=== PATIENT | female | born 2000 | race Caucasian/White ===

== ENCOUNTER 2018-10-19 11:26 | Emergency (ER) | payer OTHER, SELFPAY ==
[2018-10-19 11:29] VITALS: BP 106/61; PULSE 88; RESP 16; TEMP 36.9; O2SAT 95
--- NOTE | 2018-10-19 11:32 | W.ED.GENAD ---
Discharge Plan Disposition Patient Disposition: HOME Condition: Stable Discharge Details Chief Complaint: Abd Prob Clinical Impression: Complex cyst of right ovary, Abdominal pain Primary Care Provider: Wanda,Local ED Provider: Ronald Calderon Home Meds and New Rx's Prescriptions: New ondansetron 4 mg tablet,disintegrating 4 mg PO QID PRN (Reason: nausea and vomiting) Qty: 30 RF: 0 No Action albuterol sulfate [ProAir HFA] 90 mcg/actuation Hfa Aerosol Inhaler 2 puff Inhalation BID RF: 0 Discharge Instructions Instructions: Ovarian Cyst (ED) Additional Instructions: you should be contacted with an appointment for women's wellness you can take 1000mg tylenol and 600mg ibuprofen as needed for pain if you have severe worsening of pain or persistent vomit return to the emergency department Medical Decision Making 17 yo female who denies chronic medical problems, smoking, alcohol or drug use or surgical hx, comes in with cc of over a week of worsening abdominal pain, intermittent n/v and diarrhea for 2 days. She denies recent travel or foods. Localizes the pain to the lower abdomen and has pain in the llq and is not guarding or having rebound on exam. She is tender with deep palpation in the llq. NO vaginal d/c or bleeding. Will obtain labs and imaging to eval for diverticulitis, pancreatitis. No pelvic pain so doubt ovarian torsion labs are unremarkable, her pain has improved but still present. Per Dr. Cueva CT shows right ovarian cyst, no other acute findings. Will obtain u/s to eval for torsion u/s shows good flow to both cysts, has complex right cyst, will have her f/u with [facility] [place] for this. Return precautions given Differential Diagnosis gastroenteritis, diverticulitis, ovarian cyst Imaging Data Radiologic Study: Attestation: I personally reviewed and interpreted this imaging study as follows: Imaging: CT Scan Radiologist's impression: right ovarian cyst Radiologic Study #2: Attestation: I personally reviewed and interpreted this imaging study as follows: Imaging: Ultrasound Radiologist's impression: intact venous and arterial flow, right ovarian complex cyst Lab Data Lab results reviewed: Yes I reviewed the patient's lab results. HPI General Mode of arrival: ambulatory. Date/Time Provider Initiated Documentation: 10/19/18 11:32. Limitations to Documentation: no limitations. Information obtained by: patient. History of Present Illness 17 year old F presents to the emergency department with the chief complaint of abdominal pain, described as moderate, Quality is described as stabbing and aching, and is localized to the abdomen. Patient reports no radiation. Patient started experiencing this week(s) (1) and it has been constant. No relieving factors improve symptom(s), No exacerbating factors reported . Patient notes nausea/vomiting. Related Data Home Medications Medication Instructions Recorded Confirmed albuterol sulfate [ProAir HFA] 2 puff INHALATION BID 10/19/18 10/19/18 ondansetron 4 mg PO QID PRN #30 tab 10/19/18 Previous Rx's Medication Instructions Recorded ondansetron 4 mg PO QID PRN #30 tab 10/19/18 Allergies Allergy/AdvReac Type Severity Reaction Status Date / Time No Known Allergies Allergy Unverified 10/19/18 11:34 Review of Systems Review of Systems All systems reviewed & are unremarkable except as noted in HPI and below Constitutional Denies weakness ENT Denies change in voice Cardiovascular Denies chest pain and Denies dyspnea Respiratory Denies cough and Denies dyspnea Musculoskeletal Denies joint swelling Neurologic Denies weakness ON LICENSE OF [facility] Social History Smoking/Tobacco Use Status: Never Alcohol Intake: never Substance use type: does not use Do you feel safe at home: Yes Do you feel safe in your relationship?: Yes Exam Const General: no acute distress Orientation: alert HENMT Head: normal to inspection Ears: external ears normal General nose exam: external nose normal Mouth: moist mucous membranes Eyes General: appearance normal, both eyes and all related structures Neck Neck: normal visual inspection Resp Effort & Inspection: normal respiratory effort and able to speak in complete sentences Cardio Rate: regular rate GI Inspection: normal to inspection Palpation: soft Skin General skin exam: no rashes or lesions noted Neuro General: alert and oriented x3 Extrem General: normal to inspection Psych Mental Status: mental status grossly normal
--- NOTE | 2018-10-19 11:40 | DI.CT_ITS ---
SYMPTOMS/DIAGNOSIS: LOWER ABDOMINAL PAIN CT SCAN OF THE ABDOMEN AND PELVIS: CT scan of the abdomen and pelvis was performed following the uneventful administration of intravenous contrast material. There are no priors for comparison. The visualized lung bases are clear. The liver, spleen, pancreas, gallbladder, bile ducts and adrenal glands are unremarkable. The kidneys show normal and symmetric enhancement. No solid renal mass or obstruction is seen. The urinary bladder is intact. There is a 4 cm cyst in the right adnexa, likely ovarian. The reproductive organs are otherwise unremarkable. The bowel shows no evidence of obstruction or inflammation. There is a normal appendix present. There is a trace amount of free fluid in the pelvis, which is likely physiologic. No pneumoperitoneum or adenopathy is seen. The abdominal aorta is of normal caliber. No acute osseous abnormalities identified. IMPRESSION: 1. A 4 cm right adnexal cystic lesion, likely ovarian. Pelvic ultrasound may be considered for further evaluation. 2. Normal appendix. The findings were discussed with Dr. Parul Dumont of the Emergency Department on the date of the examination.
--- NOTE | 2018-10-19 11:49 | ED.GENADUL_ITS ---
Discharge Plan Disposition Patient Disposition: HOME Condition: Stable Discharge Details Chief Complaint: Abd Prob Clinical Impression: Complex cyst of right ovary, Abdominal pain Primary Care Provider: Wanda,Local ED Provider: Ronald Calderon Home Meds and New Rx's Prescriptions: New ondansetron 4 mg tablet,disintegrating 4 mg PO QID PRN (Reason: nausea and vomiting) Qty: 30 RF: 0 No Action albuterol sulfate [ProAir HFA] 90 mcg/actuation Hfa Aerosol Inhaler 2 puff Inhalation BID RF: 0 Discharge Instructions Instructions: Ovarian Cyst (ED) Additional Instructions: you should be contacted with an appointment for women's wellness you can take 1000mg tylenol and 600mg ibuprofen as needed for pain if you have severe worsening of pain or persistent vomit return to the emergency department Medical Decision Making 17 yo female who denies chronic medical problems, smoking, alcohol or drug use or surgical hx, comes in with cc of over a week of worsening abdominal pain, intermittent n/v and diarrhea for 2 days. She denies recent travel or foods. Localizes the pain to the lower abdomen and has pain in the llq and is not guarding or having rebound on exam. She is tender with deep palpation in the llq. NO vaginal d/c or bleeding. Will obtain labs and imaging to eval for div erticulitis, pancreatitis. No pelvic pain so doubt ovarian torsion labs are unremarkable, her pain has improved but still present. Per Dr. Cueva CT shows right ovarian cyst, no other acute findings. Will obtain u/s to eval for torsion u/s shows good flow to both cysts, has complex right cyst, will have her f/u with [facility] for [facility]. Return precautions given Differential Diagnosis gastroenteritis, diverticulitis, ovarian cyst Imaging Data Radiologic Study: Attestation: I personally reviewed and interpreted this imaging study as follows: Imaging: CT Scan Radiologist's impression: right ovarian cyst Radiologic Study #2: Attestation: I personally reviewed and interpreted this imaging study as follows: Imaging: Ultrasound Radiologist's impression: intact venous and arterial flow, right ovarian complex cyst Lab Data Lab results reviewed: Yes I reviewed the patient's lab results. HPI General Mode of arrival: ambulatory . Date/Time Provider Initiated Documentation: 10/19/18 11:32 . Limitations to Documentation: no limitations . Information obtained by: patient . History of Present Illness 17 year old F presents to the emergency department with the chief complaint of abdominal pain, described as moderate, Quality is described as stabbing and aching, and is localized to the abdomen. Patient reports no radiation. Patient started experiencing this week(s) (1) and it has been constant. No relieving factors improve symptom(s), No exacerbating factors reported . Patient notes nausea/vomiting. Related Data Home Medications Medication Instructions Recorded Confirmed albuterol sulfate [ProAir HFA] 2 puff INHALATION BID 10/19/18 10/19/18 ondansetron 4 mg PO QID PRN #30 tab 10/19/18 Previous Rx's Medication Instructions Recorded ondansetron 4 mg PO QID PRN #30 tab 10/19/18 Allergies Allergy/AdvReac Type Severity Reaction Status Date / Time No Known Allergies Allergy Unverified 10/19/18 11:34 Review of Systems Review of Systems All systems reviewed & are unremarkable except as noted in HPI and below Constitutional Denies weakness ENT Denies change in voice Cardiovascular Denies chest pain and Denies dyspnea Respiratory Denies cough and Denies dyspnea Musculoskeletal Denies joint swelling Neurologic Denies weakness [facility] Social History Smoking/Tobacco Use Status: Never Alcohol Intake: never Substance use type: does not use Do you feel safe at home: Yes Do you feel safe in your relationship?: Yes Exam Const General: no acute distress Orientation: alert HENMT Head: normal to inspection Ears: external ears normal General nose exam: external nose normal Mouth: moist mucous membranes Eyes General: appearance normal, both eyes and all related structures Neck Neck: normal visual inspection Resp Effort & Inspection: normal respiratory effort and able to speak in complete sentences Cardio Rate: regular rate GI Inspection: normal to inspection Palpation: soft Skin General skin exam: no rashes or lesions noted Neuro General: alert and oriented x3 Extrem General: normal to inspection Psych Mental Status: mental status grossly normal
[2018-10-19 11:55] LABS: Abs Immature Grans 0.01 k/cumm (0.0-0.09); Absolute Basophil Count 0.03 k/cumm (0.0-0.2); Absolute Eosinophil Count 0.46 k/cumm (0.0-0.7); Absolute Lymphocyte Count 1.66 k/cumm (1.2-3.4); Absolute Monocyte Count 0.62 k/cumm (0.11-0.7); Absolute Neutrophil Count 2.43 k/cumm (1.2-6.7); Basophils % 0.6; Eosinophils % 8.8; HCT 43.3 % (36.0-46.0); HGB 14.4 g/dL (12.0-15.5); Immature Grans % 0.2; Lymphocytes % 31.9; Mean Corp. HGB Concentration 33.3 g/dL (32.0-36.0); Mean Corpuscular Hemoglobin 28.6 pg (27.0-33.0); Mean Corpuscular Volume 85.9 fL (80-95); Mean Platelet Volume 10.1 fL (8.0-11.0); Monocytes % 11.9; Neutrophils % 46.6; Platelet Count 359 x1000/uL (130-400); RBC 5.04 m/cumm (4.00-5.20); RBC Distribution Width 13.9 % (11.7-14.6); White Blood Cell Count 5.21 k/cumm (4.4-10.8)
[2018-10-19] MEDS: Ketorolac 15 MG/ML VIAL IVP (12:07)
[2018-10-19] MEDS: Ondansetron 4 MG/2 ML VIAL IVP (12:08)
[2018-10-19] MEDS: Normal Saline 1,000 ML 1000 ML IV (12:08)
[2018-10-19 12:11] LABS: ALT 34 U/L (12-78); AST 26 U/L (15-37); Alkaline Phosphatase 97 U/L (46-116); Anion Gap 12.5 mmol/L (3-11); BUN 14 mg/dL (7-18); Bilirubin, Total 0.3 mg/dL (0.2-1.0); CO2 26.5 mmol/L (21.0-32.0); CREATININE 0.67 mg/dL (0.55-1.02); Calcium 9.1 mg/dL (8.5-10.1); Chloride 100 mmol/L (98-107); Glucose 75 mg/dL (70-100); Lipase 137 U/L (73-393); Potassium 3.7 mmol/L (3.5-5.1); Sodium 139 mmol/L (136-145); Total Protein 8.1 g/dL (6.4-8.2)
[2018-10-19] MEDS: Omnipaque 350 MG/ML 100 ML BTL IJ (12:31)
--- NOTE | 2018-10-19 12:45 | DI.US_ITS ---
SYMPTOMS/DIAGNOSIS: PELVIC PAIN, NAUSEA/VOMITING/DIARRHEA, OVARIAN CYST, ? TORSION PELVIC ULTRASOUND: Transabdominal and transvaginal examination was performed. The uterus measures 6.2 cm long x 2.4 cm AP x 4.2 cm transverse. The endometrial stripe is within normal limits at 0.4 cm. No myometrial mass is present. The left ovary measures 3.5 x 1.7 x 2.4 cm. There are small follicular cysts present. There is normal blood flow to the left ovary. No evidence of torsion is present. The right ovary measures 4.9 x 3.2 x 4.8 cm. There is normal blood flow. No evidence of torsion. There is a 4.2 x 2.7 x 4.2 cm complex right ovarian cyst. Internal septations are seen. No blood flow is identified internally. There is a small amount of free fluid in the cul-de-sac. This is likely physiologic. No hydronephrosis is identified. IMPRESSION: A 4.2 cm complex right ovarian cyst. This corresponds to the CT abnormality. This may represent a hemorrhagic cyst. A follow-up pelvic ultrasound in 6-8 weeks is recommended to document resolution of the cyst and to exclude other etiologies. The findings were discussed with Dr. Calderon of the Emergency Department on the date of the examination.
[2018-10-19 14:20] VITALS: BP 114/72; PULSE 81; RESP 14; TEMP 37.1; O2SAT 99
--- NOTE | 2018-10-20 08:33 | PDOC.ERCMPRO ---
Care Management Progress Note 10/20-Dr. Calderon requested assistance with a [facility] f/u as soon as possible for complex ovarian cyst. Referral faxed to [facility] this am.
== END 2018-10-19 14:29 | disposition home or self-care (01) ==
PROVIDERS: Emergency Provider Emergency Medicine
DX: N83.291 Other ovarian cyst, right side (principal); R10.9 Unspecified abdominal pain
CPT/HCPCS: 36415; 80053; 83690; 87040; 96361; 96374; 99285; 74177; 76830; 76856; 85025; 99284; J1885; J2405; J3490

== ENCOUNTER 2019-01-10 11:28 | Emergency (ER) | payer MEDICAID, SELFPAY ==
[2019-01-10 11:32] VITALS: BP 115/58; PULSE 89; RESP 18; TEMP 36.8; O2SAT 100
--- NOTE | 2019-01-10 11:43 | DI.CT_ITS ---
SYMPTOMS/DIAGNOSIS: LLQ PAIN CT OF THE ABDOMEN AND PELVIS: Comparison is made with [id number]. Images were performed from the lung bases through the ischial tuberosities after IV and without oral contrast. The heart size is normal. The lung bases are clear. The liver, gallbladder, spleen, pancreas, kidneys and adrenals appear normal. There is a moderate quantity of stool. There is no bowel dilatation or inflammatory change. The appendix appears normal. The uterus and ovaries appear normal. The bladder is unremarkable. IMPRESSION: Negative CT of the abdomen and pelvis:
--- NOTE | 2019-01-10 11:46 | ED.GENADUL_ITS ---
Discharge Plan Disposition Patient Disposition: HOME Condition: Improving Discharge Details Chief Complaint: Abd Prob Clinical Impression: Bacterial vaginosis Primary Care Provider: Kenny Evans ED Provider: Kartik Blackburn Home Meds and New Rx's Prescriptions: New metronidazole [Metrogel] 1 % gel with pump 1 applic TP DAILY 5 Days Qty: 55 RF: 0 Continued loratadine [Claritin] 10 mg tablet 10 mg PO DAILY RF: 0 Cryselle (28) 0.3-30 mg-mcg tablet 1 tab PO DAILY Qty: 84 RF: 3 albuterol sulfate [ProAir HFA] 90 mcg/actuation Hfa Aerosol Inhaler 2 puff Inhalation BID RF: 0 ondansetron 4 mg tablet,disintegrating 4 mg PO QID PRN (Reason: nausea and vomiting) Qty: 30 RF: 0 Symbicort 160-4.5 mcg/actuation Hfa Aerosol Inhaler 2 puff INHALATION BID RF: 0 Discharge Instructions Instructions: Bacterial Vaginosis (ED) Additional Instructions: Home to rest today. Please begin the metronidazole prescription for its entire 5-day course. Follow-up with Dr. Gill if not improving in 3 to 5 days time. Return to the ER if you develop a fever, worsening pain, or any other acute concerns May use Tylenol and/or ibuprofen as needed for pain Medical Decision Making 18-year-old female presents from home with 3 days of intermittent left-sided lower abdominal pain that somewhat colicky in nature. Associated with what she says is a green vaginal discharge. Vital signs are normal. She does have some left lower quadrant left adnexal pain on exam. Pharyngitis includes bacterial vaginosis, ovarian cyst, less likely bowel pathology. IV placed, labs, urinalysis, vaginal pathology swabs obtained. Patient referred for CT images. She is given ketorolac for discomfort. Labs notable for positive Gardnerella. CBC stable with a white count of 6, chemistries reassuring but with slight anion gap of 13. HPI General Mode of arrival: ambulatory . Date/Time Provider Initiated Documentation: 01/10/19 11:31 . Limitations to Documentation: no limitations . Information obtained by: patient . History of Present Illness 18 year old F presents to the emergency department with the chief complaint of Left lower quadrant abdominal pain, vaginal discharge, described as moderate, Quality is described as dull, and is localized to the abdomen and pelvis. Patient abdomen. Patient started experiencing this day(s) and it has been intermittent. No relieving factors improve symptom(s), No exacerbating factors reported . Patient notes denies fever/chills. Patient did receive the following treatments prior to arrival, none Related Data Home Medications Medication Instructions Recorded Confirmed albuterol sulfate [ProAir HFA] 2 puff INHALATION BID 10/19/18 01/10/19 ondansetron 4 mg PO QID PRN #30 tab 10/19/18 01/10/19 loratadine 10 mg tablet 10 mg PO DAILY 10/20/18 01/10/19 norgestrel-ethinyl estradiol 0.3 1 tab PO DAILY #84 tab 10/20/18 01/10/19 mg-30 mcg tablet Symbicort 2 puff INHALATION BID 01/10/19 01/10/19 metronidazole [Metrogel] 1 applic TP DAILY 5 Days #55 gm 01/10/19 Previous Rx's Medication Instructions Recorded ondansetron 4 mg PO QID PRN #30 tab 10/19/18 norgestrel-ethinyl estradiol 0.3 1 tab PO DAILY #84 tab 10/20/18 mg-30 mcg tablet metronidazole [Metrogel] 1 applic TP DAILY 5 Days #55 gm 01/10/19 Allergies Allergy/AdvReac Type Severity Reaction Status Date / Time No Known Allergies Allergy Unverified 01/10/19 11:38 General Stated Complaint: Abd Prob DALY: 3 Review of Systems Review of Systems 6 systems reviewed and otherwise negative [facility] Social History Smoking/Tobacco Use Status: Never Alcohol Intake: never Substance use type: does not use Do you feel safe at home: Yes Do you feel safe in your relationship?: Yes Female Reproductive History Menstrual Age of Menarche: 12 Duration of menses: 6-7 days (period lasting 4 to 7 days) control method: none Exam Narrative Exam Narrative: GEN: awake, alert, oriented 3. Pleasant, well groomed, interactive. HEAD: Normocephalic, atraumatic ENT: Mucous membranes moist, oropharynx unremarkable, External ear exam unremarkable EYES: PERRL, EOMI NECK: Full ROM, no CAROLYNN, no menigismus CHEST/RESP: Nontender, clear to auscultation bilateral, no wheeze/rhonchi/rales CARDIOVASCULAR: RRR, no murmur, rub capri. 2+ Rad pulse bilateral ABDOMEN: Soft, tender in the left lower quadrant to palpation, no mass. +Bowel sounds. Vaginal exam reveals blood and mucus in the vaginal vault, tenderness with bimanual exam of the left adnexa EXT: Full ROM, no edema, no rash Neuro: Grossly normal neurologic exam, conversant, interactive. Psych: Speech fluent, thoughts congruent, affect normal Course Vital Signs Temperature 36.8 C 01/10/19 11:32 Pulse 89 01/10/19 11:32 Respiratory Rate 18 01/10/19 11:32 Blood Pressure 115/58 L 01/10/19 11:32 Pulse Oximetry 100 01/10/19 11:32 Temperature 36.8 C 01/10/19 11:32 Temperature Source Temporal Artery Scan 01/10/19 11:32 Pulse 89 01/10/19 11:32 Respiratory Rate 18 01/10/19 11:32 Respiratory Effort Non-Labored 01/10/19 11:37 Blood Pressure 115/58 L 01/10/19 11:32 Pulse Oximetry 100 01/10/19 11:32 Oxygen Delivery Method Room Air 01/10/19 11:32 Oxygen Flow Rate 0 01/10/19 11:32 Pain Level 5 01/10/19 11:32
[2019-01-10 12:19] LABS: Bilirubin Negative (Negative); Blood Negative (Negative); Clarity Clear (Clear); Glucose Negative (Negative); Ketones Negative (Negative); Leukocyte Esterase Negative (Negative); Nitrite Negative (Negative); Specific Gravity 1.015 (1.005-1.025); Urobilinogen 0.2 EU/dL (Up TO 0.2)
[2019-01-10] MEDS: Normal Saline Flush 10 ML SYR IVP ×2 (12:20→12:52)
[2019-01-10] MEDS: Normal Saline 1,000 ML 125 ML IV (12:25)
[2019-01-10] MEDS: Ketorolac 30 MG/ML VIAL IVP (12:25)
[2019-01-10 12:34] LABS: Abs Immature Grans 0.01 k/cumm (0.0-0.09); Absolute Basophil Count 0.02 k/cumm (0.0-0.2); Absolute Eosinophil Count 0.37 k/cumm (0.0-0.7); Absolute Lymphocyte Count 2.13 k/cumm (1.2-3.4); Basophils % 0.3; Eosinophils % 5.7; HCT 41.2 % (36.0-46.0); HGB 13.9 g/dL (12.0-15.5); Immature Grans % 0.2; Lymphocytes % 32.6; Mean Corp. HGB Concentration 33.7 g/dL (32.0-36.0); Mean Corpuscular Hemoglobin 29.1 pg (27.0-33.0); Mean Corpuscular Volume 86.2 fL (80-95); Mean Platelet Volume 10.1 fL (8.0-11.0); Monocytes % 7.7; Neutrophils % 53.5; Platelet Count 437 x1000/uL (130-400); RBC 4.78 m/cumm (4.00-5.20); RBC Distribution Width 13.2 % (11.7-14.6); White Blood Cell Count 6.53 k/cumm (4.4-10.8)
[2019-01-10 12:48] LABS: ALT 29 U/L (12-78); AST 19 U/L (15-37); Albumin 3.7 g/dL (3.4-5.0); Alkaline Phosphatase 117 U/L (46-116); Anion Gap 13.7 mmol/L (3-11); BUN 10 mg/dL (7-18); Bilirubin, Total 0.2 mg/dL (0.2-1.0); CO2 23.3 mmol/L (21.0-32.0); CREATININE 0.68 mg/dL (0.55-1.02); Calcium 8.6 mg/dL (8.5-10.1); Chloride 106 mmol/L (98-107); Glucose 87 mg/dL (70-100); Potassium 3.8 mmol/L (3.5-5.1); Sodium 143 mmol/L (136-145); Total Protein 7.6 g/dL (6.4-8.2)
[2019-01-10] MEDS: Omnipaque 350 MG/ML 100 ML BTL IJ (12:52)
[2019-01-10 13:00] VITALS: BP 112/73; PULSE 83; RESP 18; TEMP 36.8; O2SAT 99
--- NOTE | 2019-01-10 13:58 | DI.VRAD_ITS ---
EXAM: CT Abdomen and Pelvis With Contrast EXAM DATE/TIME: 01/10/2019 11:44 AM CLINICAL HISTORY: 18 years old, female; Other: Llq pain TECHNIQUE: Imaging protocol: Axial computed tomography images of the abdomen and pelvis with intravenous contrast. Coronal and sagittal reformatted images were created and reviewed. Radiation optimization: All CT scans at this facility use at least one of these dose optimization techniques: automated exposure control; mA and/or kV adjustment per patient size (includes targeted exams where dose is matched to clinical indication); or iterative reconstruction. Contrast material: OMNIPAQUE 350; Contrast volume: 91 ml; Contrast route: IV; COMPARISON: CT ABDOMEN PELVIS W 10/19/2018 12:08 PM FINDINGS: Liver: Unremarkable. No mass. Gallbladder and bile ducts: Unremarkable. No calcified stones. No ductal dilation. Pancreas: Unremarkable. No ductal dilation. Spleen: Unremarkable. No splenomegaly. Adrenals: Normal. No mass. Kidneys and ureters: Unremarkable. No stones. No hydronephrosis. Stomach and bowel: Unremarkable. No obstruction. No mucosal thickening. Appendix: No evidence of appendicitis. Intraperitoneal space: Unremarkable. No free air. No significant fluid collection. Vasculature: Unremarkable. No abdominal aortic aneurysm. Lymph nodes: Unremarkable. No enlarged lymph nodes. Bladder: Unremarkable as visualized. Reproductive: Unremarkable as visualized. Bones/joints: No acute fracture. Soft tissues: Unremarkable. IMPRESSION: No acute findings. Dictated and Authenticated by: Rolando Valente MD. Ordering:ARTIS Verdugo MD
[2019-01-10 14:33] VITALS: BP 112/76; PULSE 93; RESP 16; TEMP 37.1; O2SAT 98
== END 2019-01-10 14:29 | disposition home or self-care (01) ==
PROVIDERS: Emergency Provider Emergency Medicine; PCP Specialist/Technologist Athletic Trainer
DX: N76.0 Acute vaginitis (principal); B96.89 Other specified bacterial agents as the cause of diseases classified elsewhere
CPT/HCPCS: 36415; 80053; 81025; 96361; 96374; 99285; 74177; 81003; 85025; 87480; 87510; 87660; 99284; J1885; J3490

== ENCOUNTER 2019-02-15 09:00 | Outpatient (CLI) | payer MEDICAID, SELFPAY ==
[2019-02-16 16:42] LABS: Alternaria Tenuis IgE <0.35 kU/L; Aspergillus Fumigatus IgE <0.35 kU/L; Bermuda Grass IgE 2.84 kU/L; Cockroach IgE <0.35 kU/L; Cottonwood IgE <0.35 kU/L; D Farinae IgE 6.03 kU/L; Eastern Sycamore IgE <0.35 kU/L; Elm IgE <0.35 kU/L; Epicoccum purpurascens IgE <0.35 kU/L; Giant Ragweed IgE <0.35 kU/L; Oak IgE <0.35 kU/L; Penicillium chrysogenum IgE <0.35 kU/L; Red Sorrel IgE <0.35 kU/L; Rough Pigweed IgE <0.35 kU/L; Silver Birch IgE <0.35 kU/L; Walnut Tree IgE <0.35 kU/L
[2019-02-16 16:59] LABS: Cat Epithelium IgE 13.8 kU/L; Cladosporium IgE <0.35 kU/L; Cocklebur IgE <0.35 kU/L; Lamb's Quarter IgE <0.35 kU/L; Short Ragweed IgE <0.35 kU/L; Stemphyllium IgE <0.35 kU/L; Timothy Grass IgE <0.35 kU/L; Wormwood IgE <0.35 kU/L
[2019-02-18 17:30] LABS: CLASS 0; Cedar Red IgE <0.10 kU/L (<0.35); Fusarium oxysporum/vasinfectum <0.35 kU/L (<0.35); Rhodotorula IgE <0.35 kU/L (<0.35)
== END 2019-02-15 09:20 ==
PROVIDERS: PCP Specialist/Technologist Athletic Trainer; Visit Provider Physician Assistant
DX: J31.0 Chronic rhinitis (principal); Z91.09 Other allergy status, other than to drugs and biological substances
CPT/HCPCS: 36415; 86003

== ENCOUNTER 2020-06-22 15:58 | Outpatient (REF) | payer MEDICAID, SELFPAY ==
--- NOTE | 2020-06-22 14:45 | PAPFT_PTH ---
PATIENT: ALL CASTELLANOS LOC: [facility] U#:[id number] AGE/SX: 19/F ROOM: RE06/22/[address]: Viviana Gay : 2000 BED: DIS: 06/22/2020 SPEC #: [id number] RECD: 06/23/20 12:45 STATUS: NANCI REQ #: [id number] KATHARINE: 06/22/20 14:[address]: Viviana Gay DEPT: [facility] Cytology RECD BY: Felicia Rashid ENTERED: 06/23/20 12:46 SP TYPE: PAPFT OTHR DR: Kenny Evans Tissues: 1 - CX/ENDOCX FOR PAP SMEARS Procedures: PAP THIN PREP/[facility] Screening Comments: [id number] (CHLAMYDIA/GC)
[2020-06-22 21:13] LABS: Abs Immature Grans 0.02 10^3/uL (0.0-0.06); Absolute Basophil Count 0.03 10^3/uL (0.0-0.2); Absolute Eosinophil Count 0.12 10^3/uL (0.0-0.7); Absolute Lymphocyte Count 2.19 10^3/uL (1.2-3.4); Absolute Monocyte Count 0.45 10^3/uL (0.1-0.8); Basophils % 0.4; Eosinophils % 1.5; HCT 44.4 % (36.0-46.0); Immature Grans % 0.2; Lymphocytes % 26.7; MCH 27.1 pg (27.0-33.0); MCHC 31.5 % (32.0-36.0); MCV 85.9 fL (80-95); MPV 10.3 fL (8.0-11.0); Monocytes % 5.5; Neutrophils % 65.7; Nucleated RBC 0 %; Platelet Count 473 10^3/uL (130-400); RBC 5.17 10^6/uL (3.93-5.22); RDW 13.2 % (11.7-14.6); RDW-SD 41.3 fL; WBC 8.21 10^3/uL (4.4-10.8)
[2020-06-22 21:33] LABS: Anion Gap 9.9 mmol/L (3-11); BUN 9 mg/dL (7-18); CO2 25.1 mmol/L (21.0-32.0); CREATININE 0.91 mg/dL (0.55-1.02); Chloride 103 mmol/L (98-107); Glucose 79 mg/dL (74-106); Potassium 4.5 mmol/L (3.5-5.1); Sodium 138 mmol/L (136-145); TSH (W/Ref FT4) 2.09 uIU/mL (0.36-3.74)
[2020-06-26 10:34] LABS: HIV-1/2 Ag & Ab Screen Negative (Negative)
[2020-06-26 10:58] LABS: Hepatitis C Ab w Rflx HCV PCR Negative (Negative)
[2020-06-26 11:26] LABS: Syphilis Serology (RPR) Negative (Negative)
[2020-06-26 14:15] LABS: Chlamydia Result Negative (Negative); GC Result Negative (Negative)
== END 2020-06-22 16:18 ==
LOC: NCHCN 15:58
PROVIDERS: PCP Specialist/Technologist Athletic Trainer; Visit Provider Nurse Practitioner Family
DX: G44.89 Other headache syndrome (principal); F41.8 Other specified anxiety disorders; R10.9 Unspecified abdominal pain; K30 Functional dyspepsia; Z11.3 Encounter for screening for infections with a predominantly sexual mode of transmission; Z11.4 Encounter for screening for human immunodeficiency virus [HIV]; Z11.59 Encounter for screening for other viral diseases; Z12.4 Encounter for screening for malignant neoplasm of cervix
CPT/HCPCS: 80048; 86803; 87389; 87491; 87591; 88142; 84443; 85025; 86592

== ENCOUNTER 2020-08-03 02:50 | Outpatient (CLI) | payer MEDICAID, SELFPAY ==
--- NOTE | 2020-08-03 | DI.US_ITS ---
EXAM: US PELVIS TRANSVAGINAL CLINICAL HISTORY: PELVIC PAIN,R10.2. TECHNIQUE: Transabdominal and transvaginal pelvic ultrasound was performed using standard protocol. COMPARISON: US US PELVIS TRANSVAGINAL from 10/19/2018 FINDINGS: KIDNEYS: Kidneys are symmetric in size. No evidence of renal calculi. No evidence of hydronephrosis. No renal mass or cyst identified. UTERUS: Position: Anteverted. Size: 5.9 long by 3.1 AP by 3.7 transverse cm Endometrium: 0.7 cm. Normal for patient's menstrual status. Myometrium: Unremarkable. Cervix: Unremarkable. OVARIES: Right: 2.6 x 1.5 x 1.4 cm Cyst or mass: Small functional cysts are present. Left: 2.6 x 1.6 x 2.1 cm Cyst or mass: Small functional cysts are present. The largest measures 1.8 x 1.6 x 1.8 cm. DOPPLER: Color: Symmetric and uniform flow to both ovaries. No hyperemia. Duplex: Normal ovarian arterial waveforms visualized. CUL-DE-SAC: Free fluid: None. Other: None. IMPRESSION: 1. Normal sonographic appearance of the kidneys. 2. Normal-appearing uterus with endometrial stripe within normal limits. 3. Unremarkable bilateral ovaries. DATA REPOSITORY:
== END 2020-08-03 03:10 ==
PROVIDERS: PCP Nurse Practitioner Family; Visit Provider Family Medicine
DX: R10.2 Pelvic and perineal pain (principal)
CPT/HCPCS: 76830; 76856

== ENCOUNTER 2020-09-07 16:00 | Outpatient (REF) | payer MEDICAID, SELFPAY ==
[2020-09-07 20:11] LABS: Abs Immature Grans 0.02 10^3/uL (0.0-0.06); Absolute Basophil Count 0.02 10^3/uL (0.0-0.2); Absolute Eosinophil Count 0.14 10^3/uL (0.0-0.7); Absolute Lymphocyte Count 2.11 10^3/uL (1.2-3.4); Absolute Monocyte Count 0.45 10^3/uL (0.1-0.8); Absolute Neutrophil Count 4.78 10^3/uL (1.2-6.7); Basophils % 0.3; Eosinophils % 1.9; HCT 40.6 % (36.0-46.0); Immature Grans % 0.3; Lymphocytes % 28.1; MCH 27.1 pg (27.0-33.0); MCV 84.6 fL (80-95); MPV 11.3 fL (8.0-11.0); Neutrophils % 63.4; Nucleated RBC 0 %; Platelet Count 505 10^3/uL (130-400); RDW-SD 43.5 fL; WBC 7.52 10^3/uL (4.4-10.8)
[2020-09-07 20:21] LABS: Iron 52 ug/dL (50-170); Total Iron Binding Capacity 380 ug/dL (250-450); Transferrin Sat 14 % (15-50)
[2020-09-07 20:32] LABS: TSH (W/Ref FT4) 2.96 uIU/mL (0.36-3.74)
== END 2020-09-07 16:01 | disposition home or self-care (01) ==
LOC: NCHCN 16:00
PROVIDERS: PCP Nurse Practitioner Family; Visit Provider Nurse Practitioner Family
DX: F41.8 Other specified anxiety disorders (principal); R10.9 Unspecified abdominal pain; G44.89 Other headache syndrome; K30 Functional dyspepsia; F43.10 Post-traumatic stress disorder, unspecified
CPT/HCPCS: 83540; 83550; 84443; 85025

== ENCOUNTER 2020-09-08 15:33 | Outpatient (REF) | payer MEDICAID, SELFPAY ==
[2020-09-08 21:11] LABS: C-Reactive Protein 2.58 mg/dL (0.0-0.3)
[2020-09-08 21:46] LABS: Ferritin 65 ng/mL (8-252)
[2020-09-09 14:18] LABS: ESR 40 mm/hr (<or=20)
[2020-09-12 11:58] LABS: HCT 40.4 % (36.0-46.0); HGB 12.6 g/dL (11.2-15.7); MCH 27.3 pg (27.0-33.0); MCHC 31.2 % (32.0-36.0); MCV 87.4 fL (80-95); MPV 11.7 fL (8.0-11.0); Platelet Count 461 10^3/uL (130-400); RBC 4.62 10^6/uL (3.93-5.22); RDW 14.3 % (11.7-14.6); WBC 8.32 10^3/uL (4.4-10.8)
== END 2020-09-08 15:34 | disposition home or self-care (01) ==
LOC: NCHCN 15:33
PROVIDERS: PCP Nurse Practitioner Family; Visit Provider Nurse Practitioner Family
DX: R53.83 Other fatigue (principal)
CPT/HCPCS: 85652; 81270; 82728; 86140

== ENCOUNTER 2020-09-11 15:56 | Outpatient (REF) | payer MEDICAID, SELFPAY ==
[2020-09-18 10:06] LABS: JAK2 Result see interpretation
== END 2020-09-11 15:57 | disposition home or self-care (01) ==
LOC: NCHCN 15:56
PROVIDERS: PCP Nurse Practitioner Family; Visit Provider Nurse Practitioner Family
DX: R53.83 Other fatigue (principal)
CPT/HCPCS: 85027; 81270

== ENCOUNTER 2020-09-13 08:38 | Emergency (ER) | payer MEDICAID, SELFPAY ==
[2020-09-13 08:51] VITALS: BP 138/83; PULSE 89; RESP 18; TEMP 36.7; O2SAT 100
--- NOTE | 2020-09-13 08:54 | ED.GENADUL_ITS ---
Discharge Plan Disposition Patient Disposition: HOME Condition: Stable Discharge Details Clinical Impression: Nausea vomiting and diarrhea, Cyst of left ovary Primary Care Provider: Viviana Gay ED Provider: Fay Ruffin Home Meds and New Rx's Prescriptions: Continued loratadine [Claritin] 10 mg tablet 10 mg PO DAILY RF: 0 montelukast 10 mg tablet 10 mg PO DAILY RF: 0 cholecalciferol (vitamin D3) 25 mcg (1,000 unit) capsule 25 mcg PO DAILY RF: 0 doxycycline hyclate 100 mg capsule 100 mg PO BID RF: 0 tretinoin [Retin-A] 0.1 % cream 1 applic topical QHS RF: 0 benzoyl peroxide 10 % cleanser 1 applic topical DAILY RF: 0 norethindrone ac-eth estradiol [08/02 ()] 1-20 mg-mcg tablet 1 tab PO DAILY Qty: 21 RF: 0 Nexplanon 68 mg implant 1 implant subdermal ONCE RF: 0 omeprazole 20 mg capsule,delayed release(DR/EC) 20 mg PO DAILY RF: 0 fluoxetine 20 mg capsule 20 mg PO DAILY RF: 0 albuterol sulfate [ProAir HFA] 90 mcg/actuation Hfa Aerosol Inhaler 2 puff Inhalation BID RF: 0 ondansetron 4 mg tablet,disintegrating 4 mg PO QID PRN (Reason: nausea and vomiting) Qty: 30 RF: 0 budesonide-formoterol [Symbicort] 160-4.5 mcg/actuation Hfa Aerosol Inhaler 2 puff INHALATION BID RF: 0 Discharge Instructions Instructions: Ovarian Cyst (ED), Acute Nausea and Vomiting (ED) Additional Instructions: Follow up with primary care provider in 3-5 days. Return to ED sooner if any worsening or concerns. Increase oral fluids. Please take Tylenol or Ibuprofen with food every 4-6 hours as needed for pain and swelling. Please collect stool specimen at home and bring into the lab at your convenience if continued diarrhea for the 3 to 5 days. You may take Zofran up to 3 times a day as needed for nausea and vomiting. Referrals: Viviana Gay [Primary Care Provider] - Medical Decision Making 19-year-old female presents the ER chief complaint of nausea vomiting diarrhea which began yesterday. Patient states that she had watery green diarrhea yesterday, this morning went to work and began vomiting. She has some left lower quadrant abdominal pain which she states has been going on for a while and is being worked up by her women's wellness MD, she denies any fever, no cough no shortness of breath. She does endorse some chills, she has no other complaints at this time. She denies any vaginal bleeding last normal menstrual period approximately 1 month ago. Work-up ordered including CBC, CMP, lipase, urinalysis, CT abdomen pelvis with contrast. At this time CBC shows no leukocytosis, platelets are 444 which is at baseline for patient, CMP is largely within normal limits sodium is 139, potassium 3.9 anion gap is 12.0, AST is 13, lipase is within normal limits at 173, urinalysis shows trace protein no leukocytes no nitrites micro shows squamous contamination culture is not indicated at this time. Patient has not had any diarrheal episodes while here in the department. No further emesis noted. FINDINGS: ABDOMEN: Lung Bases: Normal where visualized. Liver: Normal density. No measurable mass. Portal, Superior Mesenteric, and Splenic Veins: Unremarkable. Gallbladder and Biliary Tract: No radiodense calculus or dilation. Pancreas: Normal density, no abnormal calcifications or inflammatory process. Spleen: Normal. Adrenals: No masses seen. Kidneys: Normal size, contour and axis. No radiodense stones or obstructive uropathy. No masses seen. 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 Abdominal Aorta: Abdominal portion non-dilated. Bowel: No obstruction or bowel wall thickening. Appendix is unremarkable. Peritoneal Cavity: No ascites, collection or mesenteric inflammatory response. No free air. Lymph Nodes: Within normal limits. Bones: Within normal limits for the patient's age. Soft Tissues: Unremarkable. PELVIS: Bladder: Symmetric distention, no gross wall thickening. Reproductive Organs: There is a 1.9 cm cyst on the left ovary. This likely reflects a functional cyst. The reproductive organs are otherwise unremarkable. Lymph Nodes: Within normal limits. Bones: Within normal limits for the patient's age. IMPRESSION: 1. No acute abdominal or pelvic process. 2. 1.9 cm left ovarian functional cyst. 3. Findings were discussed with the emergency department on the date of the examination. Discussed CT results with patient and lab results who verbalized understanding. Instructed to follow-up with PCP. She does have some Zofran previously prescribed to her as needed for nausea verbalized understanding. HPI General Mode of arrival: ambulatory . Date/Time Provider Initiated Documentation: 09/13/20 08:46 . Limitations to Documentation: no limitations . Information obtained by: patient . HPI Narrative: 19-year-old female presents t he ER chief complaint of nausea vomiting diarrhea which began yesterday. Patient states that she had watery green diarrhea yesterday, this morning went to work and began vomiting. She has some left lower quadrant abdominal pain which she states has been going on for a while and is being worked up by her women's wellness MD, she denies any fever, no cough no shortness of breath. She does endorse some chills, she has no other complaints at this time. She denies any vaginal bleeding last normal menstrual period approximately 1 month ago. Related Data Home Medications Medication Instructions Recorded Confirmed albuterol sulfate [ProAir HFA] 2 puff INHALATION BID 10/19/18 09/13/20 ondansetron 4 mg PO QID PRN #30 tab 10/19/18 09/13/20 loratadine 10 mg tablet 10 mg PO DAILY 10/20/18 09/13/20 budesonide-formoterol [Symbicort] 2 puff INHALATION BID 01/10/19 09/13/20 etonogestrel 68 mg subdermal 1 implant SUBDERMAL ONCE 08/09/20 09/13/20 implant fluoxetine 20 mg capsule 20 mg PO DAILY 08/09/20 09/13/20 omeprazole 20 mg capsule,delayed 20 mg PO DAILY 08/09/20 09/13/20 release benzoyl peroxide 10 % topical 1 applic TOPICAL DAILY 08/23/20 09/13/20 cleanser cholecalciferol (vitamin D3) 25 25 mcg PO DAILY 08/23/20 09/13/20 mcg (1,000 unit) capsule doxycycline hyclate 100 mg capsule 100 mg PO BID 08/23/20 09/13/20 montelukast 10 mg tablet 10 mg PO DAILY 08/23/20 09/13/20 norethindrone acetate 1 mg-ethinyl 1 tab PO DAILY #21 tab 08/23/20 08/23/20 estradiol 20 mcg tablet tretinoin 0.1 % topical cream 1 applic TOPICAL QHS 08/23/20 09/13/20 Previous Rx's Medication Instructions Recorded ondansetron 4 mg PO QID PRN #30 tab 10/19/18 norethindrone acetate 1 mg-ethinyl 1 tab PO DAILY #21 tab 08/23/20 estradiol 20 mcg tablet Allergies Allergy/AdvReac Type Severity Reaction Status Date / Time No Known Allergies Allergy Unverified 09/13/20 08:55 General DALY: 3 Review of Systems Narrative: Constitutional: Negative for weight loss, alert and oriented, well groomed, normal body habitus, appears comfortable. HEENT: Denies trauma, headaches, blurry vision, nasal discharge, sore throat, trouble swallowing. Chest: Denies chest pain, palpitations, irregular rhythm, hypertension. Respiratory: Denies Shortness of breath, cough, hemoptysis. GI: Denies constipation. Positive left lower quadrant abdominal pain, nausea vomiting diarrhea. : Denies dysuria, hematuria, flank pain, rectal bleeding. Neuro: Denies dizziness, blurry vision, weakness, syncope, headache or facial nu mbness. Hematologic: Denies easy bruising, intolerance to heat or cold, hair loss. [facility] Social History Smoking/Tobacco Use Status: Never Smoking risk assessment performed?: Yes Alcohol Intake: never Substance use type: does not use Do you feel safe at home: Yes Do you feel safe in your relationship?: Yes Female Reproductive History Menstrual Age of Menarche: 12 Duration of menses: 6-7 days (period lasting 4 to 7 days) control method: none Exam Narrative Exam Narrative: Constitutional: Alert and oriented x3. Appears stated age. Normal body habitus. Head: Normocephalic, no trauma. Eyes: Pupils PERRLA, Red reflex noted, EOM's intact. Eyelids symmetrical without lesions, discharge, or swelling. ENT: Bilateral TM's WNL, External ear normal to inspection, no mastoid TTP, swelling, or erythema, Nasal turbinates WNL, no nasal discharge. Normal dentition, Posterior pharynx WNL, no exudate. Chest: RRR, Normal S1, S2, distal pulses intact. Resp: Lungs clear to auscultation bilaterally, no wheezes, rales, or rhonchi. Abdominal: Musculoskeletal: Normal gait, 5/5 strength to all four extremities. Skin: No suspicious rashes or lesions. Capillary refill less than 2 sec. Neurologic: Cranial nerves II-XII intact. Alert and oriented x 3. DTR's intact. Hematologic/Lymphatic: No ecchymosis, no lymphadenopathy.
--- NOTE | 2020-09-13 09:00 | DI.CT_ITS ---
EXAM: CT ABDOMEN PELVIS W CLINICAL HISTORY: Abdominal pain, Nausea Vomiting Diarrhea TECHNIQUE: Imaging Protocol: Axial computed tomography images with coronal and sagittal reformatted images were created and reviewed CONTRAST MATERIAL: Intravenous: Omnipaque 350 Contrast volume:100 mL Oral: No COMPARISON: CT CT ABDOMEN PELVIS W from 01/10/2019 FINDINGS: ABDOMEN: Lung Bases: Normal where visualized. Liver: Normal density. No measurable mass. Portal, Superior Mesenteric, and Splenic Veins: Unremarkable. Gallbladder and Biliary Tract: No radiodense calculus or dilation. Pancreas: Normal density, no abnormal calcifications or inflammatory process. Spleen: Normal. Adrenals: No masses seen. Kidneys: Normal size, contour and axis. No radiodense stones or obstructive uropathy. No masses seen. 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 Abdominal Aorta: Abdominal portion non-dilated. Bowel: No obstruction or bowel wall thickening. Appendix is unremarkable. Peritoneal Cavity: No ascites, collection or mesenteric inflammatory response. No free air. Lymph Nodes: Within normal limits. Bones: Within normal limits for the patient's age. Soft Tissues: Unremarkable. PELVIS: Bladder: Symmetric distention, no gross wall thickening. Reproductive Organs: There is a 1.9 cm cyst on the left ovary. This likely reflects a functional cys t. The reproductive organs are otherwise unremarkable. Lymph Nodes: Within normal limits. Bones: Within normal limits for the patient's age. IMPRESSION: 1. No acute abdominal or pelvic process. 2. 1.9 cm left ovarian functional cyst. 3. Findings were discussed with the emergency department on the date of the examination. RADIATION DOSE DELIVERED: 795.61mGy.cm Total DLP DATA REPOSITORY: All CT scans at this facility are submitted to the National Radiology Data Registry (NRDR) Dose Index Registry (DIR) with the [employer] (ACR). RADIATION OPTIMIZATION: All CT scans at this facility use at least one of these dose optimization te chniques: automated exposure control; mA and/or kV adjustment per patient size (includes targeted exa ms where dose is matched to clinical indication); or iterative reconstruction.
[2020-09-13] MEDS: Normal Saline 1,000 ML 1000 ML IV (09:05)
[2020-09-13] MEDS: Ondansetron 4 MG/2 ML VIAL IVP (09:06)
[2020-09-13 09:09] LABS: Abs Immature Grans 0.01 10^3/uL (0.0-0.06); Absolute Basophil Count 0.02 10^3/uL (0.0-0.2); Absolute Eosinophil Count 0.12 10^3/uL (0.0-0.7); Absolute Lymphocyte Count 1.51 10^3/uL (1.2-3.4); Absolute Monocyte Count 0.34 10^3/uL (0.1-0.8); Basophils % 0.3; HCT 38.1 % (36.0-46.0); HGB 12.5 g/dL (11.2-15.7); Immature Grans % 0.2; Lymphocytes % 24.8; MCH 27.8 pg (27.0-33.0); MCHC 32.8 % (32.0-36.0); MCV 84.9 fL (80-95); MPV 10.4 fL (8.0-11.0); Monocytes % 5.6; Neutrophils % 67.1; Nucleated RBC 0 %; Platelet Count 444 10^3/uL (130-400); RBC 4.49 10^6/uL (3.93-5.22); RDW 13.6 % (11.7-14.6); RDW-SD 42.6 fL
[2020-09-13 09:23] LABS: ALT 18 U/L (14-59); AST 13 U/L (15-37); Albumin 3.6 g/dL (3.4-5.0); Alkaline Phosphatase 116 U/L (46-116); BUN 8 mg/dL (7-18); Bilirubin, Total 0.3 mg/dL (0.2-1.0); CREATININE 0.7 mg/dL (0.55-1.02); Calcium 8.9 mg/dL (8.5-10.1); Chloride 105 mmol/L (98-107); Glucose 95 mg/dL (74-106); Lipase 173 U/L (73-393); Magnesium 2.2 mg/dL (1.8-2.4); Potassium 3.9 mmol/L (3.5-5.1); Sodium 139 mmol/L (136-145); Total Protein 7.8 g/dL (6.4-8.2)
[2020-09-13 09:55] LABS: Bilirubin Negative (Negative); Blood Negative (Negative); Clarity Clear (Clear); Glucose Negative (Negative); Ketones Negative (Negative); Leukocyte Esterase Negative (Negative); Nitrite Negative (Negative); Specific Gravity 1.025 (1.005-1.025); Urobilinogen 0.2 EU/dL (Up TO 0.2)
[2020-09-13 10:04] LABS: Bacteria Few HPF (Negative); C & S Indicated? No/Sq. Contamination; Casts Negative LPF (Negative); Crystals Negative HPF (Negative); Epithelial Cells Moderate HPF (Negative); Mucus Moderate (Negative); RBC Negative HPF (0-2); WBC 0-2 HPF (0-5)
[2020-09-13 11:39] VITALS: BP 107/67; PULSE 80; RESP 20; TEMP 36.5; O2SAT 98
== END 2020-09-13 11:37 | disposition home or self-care (01) ==
PROVIDERS: Emergency Provider Registered Nurse Emergency; PCP Nurse Practitioner Family
DX: N83.202 Unspecified ovarian cyst, left side (principal); R11.2 Nausea with vomiting, unspecified; R19.7 Diarrhea, unspecified; R10.32 Left lower quadrant pain
CPT/HCPCS: 80053; 81025; 83690; 87505; 96374; 99285; 74177; 81003; 81015; 83630; 83735; 85025; 87177; 99284; J2405

== ENCOUNTER 2020-09-16 17:52 | Outpatient (REF) | payer MEDICAID, SELFPAY ==
[2020-09-18 11:39] LABS: Campylobacter PCR Negative (Negative); Salmonella PCR Negative (Negative); Shiga Toxin PCR Negative (Negative); Shigella/Enteroinvasive Ecoli Negative (Negative)
== END 2020-09-16 17:53 | disposition home or self-care (01) ==
LOC: NCHCN 17:52
PROVIDERS: PCP Nurse Practitioner Family; Visit Provider Nurse Practitioner Family
DX: R19.7 Diarrhea, unspecified (principal)
CPT/HCPCS: 87505; 83630; 87177

== ENCOUNTER 2020-09-17 23:47 | Emergency (ER) | payer MEDICAID, SELFPAY ==
[2020-09-18 00:01] VITALS: BP 127/90; PULSE 92; RESP 16; TEMP 36.5; O2SAT 97
[2020-09-18] MEDS: Dicyclomine 20 MG TAB PO (00:16)
--- NOTE | 2020-09-18 00:22 | W.ED.GENAD ---
Discharge Plan Disposition Patient Disposition: HOME Condition: Good Discharge Details Clinical Impression: Left sided abdominal pain Primary Care Provider: Viviana Gay ED Provider: Abraham Stoll Home Meds and New Rx's Prescriptions: New lidocaine [Lidoderm] 1 PATCH patch 1 patch Topical Q24H Qty: 4 RF: 0 dicyclomine 20 mg tablet 20 mg PO BID 10 Days Qty: 20 RF: 0 Continued loratadine [Claritin] 10 mg tablet 10 mg PO DAILY RF: 0 montelukast 10 mg tablet 10 mg PO DAILY RF: 0 cholecalciferol (vitamin D3) 25 mcg (1,000 unit) capsule 25 mcg PO DAILY RF: 0 doxycycline hyclate 100 mg capsule 100 mg PO BID RF: 0 tretinoin [Retin-A] 0.1 % cream 1 applic topical QHS RF: 0 benzoyl peroxide 10 % cleanser 1 applic topical DAILY RF: 0 norethindrone ac-eth estradiol [08/02 ()] 1-20 mg-mcg tablet 1 tab PO DAILY Qty: 21 RF: 0 Nexplanon 68 mg implant 1 implant subdermal ONCE RF: 0 omeprazole 20 mg capsule,delayed release(DR/EC) 20 mg PO DAILY RF: 0 fluoxetine 20 mg capsule 20 mg PO DAILY RF: 0 albuterol sulfate [ProAir HFA] 90 mcg/actuation Hfa Aerosol Inhaler 2 puff Inhalation BID RF: 0 ondansetron 4 mg tablet,disintegrating 4 mg PO QID PRN (Reason: nausea and vomiting) Qty: 30 RF: 0 budesonide-formoterol [Symbicort] 160-4.5 mcg/actuation Hfa Aerosol Inhaler 2 puff INHALATION BID RF: 0 Discharge Instructions Instructions: Abdominal Pain (ED) Additional Instructions: At this time there is no evidence of infection on your urinalysis. As we discussed together I suspect there is a component of intestinal spasm which may be causing your pain. In our discussion together we have decided to hold off on CAT scan. Please take the Bentyl and Lidoderm patches as directed. If you notice any worsening of your symptoms, or any new symptoms such as vomiting, diarrhea, fever, chills, shortness of breath, chest pain, numbness, weakness, or fainting , please return immediately to the emergency department for reevaluation. Please follow up with your primary care provider as soon as possible for reassessment and reevaluation. As always, it was a pleasure participating in your medical care today. Referrals: Viviana Gay [Primary Care Provider] - Medical Decision Making This is a 19-year-old female with a past medical history of a previous left-sided ovarian cyst, asthma, who presents today for left lower quadrant pain for the last 3 months. Patient has been seen by various specialties. She has been seen by woman's wellness, and symptoms were felt to be nongynecologic. She was seen and assessed here in the emergency department 5 days ago, CT scan at that time showed evidence of a mild left ovarian cyst about 2 cm, but no other acute process. Work-up was otherwise unremarkable then. Stool studies were sent but have not yet returned. She presents today/this evening for persistent symptoms. She describes the pain as cramping and tight in her left flank. She is able to pinpoint it in the left mid/upper abdominal quadrant. She denies any associated urinary complaints, vaginal discharge, hematochezia, melena or acholic stool. She admits to one episode of weekly loose stools for her family bowel movements. She denies any hard or firm stool. She states that the last stool that she had yesterday was slightly more formed. She denies any association of her symptoms with food or bowel movements. It seems to be unrelated. It comes on and it more severe form seemingly randomly, does cause nausea when that occurs. She denies any left lower quadrant pain. She denies any sharp or tearing pain. No other complaints at this time. No other modifying factors. Exam is relatively unremarkable. She demonstrates mild left upper and left mid quadrant tenderness. No signs of an acute surgical abdomen, no right-sided tenderness or pelvic tenderness. Symptoms at this time certainly do not seem overly changed from prior episodes per the patient. She seems to be frustrated with the chronicity of her symptoms. With her recent relatively unremarkable CAT scan 5 days ago, no signs of an acute surgical abdomen or change in her symptoms I see no indication for emergent reimaging at this time. No indication for new labs. We will get a UA, give bentyll, and a Lidoderm patch to see if this improves her symptoms. I did have a long discussion with the patient regarding the risks and benefits of reimaging, and labs and at this point the patient also would like to hold off on additional labs or imaging. 1:16 AM After Bentyl and Lidoderm patch the patient is feeling much better. Repeat abdominal exam shows no signs of an acute surgical abdomen. Suspect form of intestinal spasm versus irritable bowel syndrome. Urinalysis shows no evidence of infection. She is currently on her period. We again had a long discussion regarding the risks and benefits of imaging and labs, and at this time I continue to see no indication for repeat emergent imaging or labs. Patient agrees. We will hold off on these, discharged home with Bentyl and Lidoderm patch. I did discuss the importance of further outpatient follow-up including the potential for colonoscopy. This time symptoms are clinically inconsistent with acute surgical abdomen, acute life-threatening etiology in the abdomen or ovaries. No clinical evidence of ovarian torsion. I have extensively reviewed the treatment plan and discharge instructions with the patient. I have addressed all patient concerns at this time. The patient was made aware of what symptoms to monitor for that would warrant a return to the emergency department. Discussed the plan with the patient, they demonstrate verbal understanding and agreement with our assessment and plan at this time. The documentation in this chart was dictated using [employer] dictation software. Please excuse any dictation errors. HPI General Date/Time Provider Initiated Documentation: 09/17/20 23:54. HPI Narrative: This is a 19-year-old female with a past medical history of a previous left-sided ovarian cyst, asthma, who presents today for left lower quadrant pain for the last 3 months. Patient has been seen by various specialties. She has been seen by woman's wellness, and symptoms were felt to be nongynecologic. She was seen and assessed here in the emergency department 5 days ago, CT scan at that time showed evidence of a mild left ovarian cyst about 2 cm, but no other acute process. Work-up was otherwise unremarkable then. Stool studies were sent but have not yet returned. She presents today/this evening for persistent symptoms. She describes the pain as cramping and tight in her left flank. She is able to pinpoint it in the left mid/upper abdominal quadrant. She denies any associated urinary complaints, vaginal discharge, hematochezia, melena or acholic stool. She admits to one episode of weekly loose stools for her family bowel movements. She denies any hard or firm stool. She states that the last stool that she had yesterday was slightly more formed. She denies any association of her symptoms with food or bowel movements. It seems to be unrelated. It comes on and it more severe form seemingly randomly, does cause nausea when that occurs. She denies any left lower quadrant pain. She denies any sharp or tearing pain. No other complaints at this time. No other modifying factors. Related Data Home Medications Medication Instructions Recorded Confirmed albuterol sulfate [ProAir HFA] 2 puff INHALATION BID 10/19/18 09/18/20 ondansetron 4 mg PO QID PRN #30 tab 10/19/18 09/18/20 loratadine 10 mg tablet 10 mg PO DAILY 10/20/18 09/18/20 budesonide-formoterol [Symbicort] 2 puff INHALATION BID 01/10/19 09/18/20 etonogestrel 68 mg subdermal 1 implant SUBDERMAL ONCE 08/09/20 09/18/20 implant fluoxetine 20 mg capsule 20 mg PO DAILY 08/09/20 09/18/20 omeprazole 20 mg capsule,delayed 20 mg PO DAILY 08/09/20 09/18/20 release benzoyl peroxide 10 % topical 1 applic TOPICAL DAILY 08/23/20 09/18/20 cleanser cholecalciferol (vitamin D3) 25 25 mcg PO DAILY 08/23/20 09/18/20 mcg (1,000 unit) capsule doxycycline hyclate 100 mg capsule 100 mg PO BID 08/23/20 09/18/20 montelukast 10 mg tablet 10 mg PO DAILY 08/23/20 09/18/20 norethindrone acetate 1 mg-ethinyl 1 tab PO DAILY #21 tab 08/23/20 09/18/20 estradiol 20 mcg tablet tretinoin 0.1 % topical cream 1 applic TOPICAL QHS 08/23/20 09/18/20 dicyclomine 20 mg PO BID 10 Days #20 tab 09/18/20 lidocaine [Lidoderm] 1 patch TOPICAL Q24H #4 ea 09/18/20 Previous Rx's Medication Instructions Recorded ondansetron 4 mg PO QID PRN #30 tab 10/19/18 norethindrone acetate 1 mg-ethinyl 1 tab PO DAILY #21 tab 08/23/20 estradiol 20 mcg tablet dicyclomine 20 mg PO BID 10 Days #20 tab 09/18/20 lidocaine [Lidoderm] 1 patch TOPICAL Q24H #4 ea 09/18/20 Allergies Allergy/AdvReac Type Severity Reaction Status Date / Time No Known Allergies Allergy Unverified 09/18/20 00:36 General Stated Complaint: Abd Prob DALY: 3 Review of Systems All systems reviewed & are unremarkable except as noted in HPI and below PFSH Social History Smoking/Tobacco Use Status: Never Smoking risk assessment performed?: Yes Alcohol Intake: never Substance use type: does not use Do you feel safe at home: Yes Do you feel safe in your relationship?: Yes Female Reproductive History Menstrual Age of Menarche: 12 Duration of menses: 6-7 days (period lasting 4 to 7 days) control method: none Exam Narrative Exam Narrative: 1.Const: Well-nourished, Well-developed, appearing stated age 2.Eyes: PERRL, no conjunctival injection, and symmetrical lids. 3.ENT: Atraumatic external nose and ears. Moist MM. Neck: Symmetric, trachea midline, No thyromegaly. 4.CVS: +S1/S2, No murmurs or gallops. Peripheral pulses 2+ and equal in all extremities. Brisk capillary refill in all extremities. 5.RESP: Unlabored respiratory effort. Clear to auscultation bilaterally. No wheezes rales or rhonchi 6.GI: Soft, Nondistended, No hepatosplenomegaly. No guarding or rebound. Mild tenderness in the left upper and left mid abdominal quadrant, no left lower or pelvic tenderness. No right-sided tenderness. No significant flank or CVA tenderness. Negative Rovsing's. Rectal exam was performed with female nurse Ayana at bedside. Digital rectal exam demonstrates no large stool ball or mass. 7.MSK: Normocephalic/Atraumatic, Extremities w/o deformity or ttp No cyanosis or clubbing, Normal movement of all extremities 8.Skin: Warm, Dry. No rashes or lesions. 9.Neuro: instructional facilitator II-XII grossly intact. Sensation grossly intact, no focal neurologic deficits. 10.Psych: (AAO) x3. Appropriate mood and affect Course Vital Signs Vital signs: Vital Signs Temperature 36.5 C 09/18/20 00:01 Pulse 92 H 03/08/21 00:01 Respiratory Rate 16 09/18/20 00:01 Blood Pressure 127/90 09/18/20 00:01 Pulse Oximetry 97 09/18/20 00:01 Temperature 36.5 C 09/18/20 00:01 Temperature Source Skin 09/18/20 00:01 Pulse 92 H 09/18/20 00:01 Respiratory Rate 16 09/18/20 00:01 Blood Pressure 127/90 09/18/20 00:01 Blood Pressure Position Sitting 09/18/20 00:01 Pulse Oximetry 97 09/18/20 00:01 Oxygen Delivery Method Room Air 09/18/20 00:01 Oxygen Flow Rate 0 09/18/20 00:01 Pain Level 7 09/18/20 00:01
[2020-09-18] MEDS: Lidocaine 5% Patch 1 PATCH TP (00:31)
[2020-09-18 00:54] LABS: Bilirubin Negative (Negative); Blood Moderate (Negative); Clarity Sl Cloudy (Clear); Glucose Negative (Negative); Ketones Negative (Negative); Leukocyte Esterase Negative (Negative); Nitrite Negative (Negative); Specific Gravity >= 1.030 (1.005-1.025); Urobilinogen 0.2 EU/dL (Up TO 0.2)
[2020-09-18 01:02] LABS: Epithelial Cells Moderate HPF (Negative)
[2020-09-18 01:03] LABS: Bacteria Moderate HPF (Negative); C & S Indicated? No/Sq. Contamination; Casts Negative LPF (Negative); Crystals Negative HPF (Negative); Mucus Moderate (Negative); Other Cells Few Transitional (Negative)
== END 2020-09-18 01:45 | disposition home or self-care (01) ==
PROVIDERS: Emergency Provider Student in an Organized Health Care Education/Training Program; PCP Nurse Practitioner Family
DX: R10.32 Left lower quadrant pain (principal); R10.12 Left upper quadrant pain
CPT/HCPCS: 81025; 99283; 81003; 81015; 99284